=== PATIENT | female | born 1945 | race Caucasian/White ===

== ENCOUNTER 2017-06-23 11:39 | Day surgery (SDC) | payer MEDICARE, OTHER ==
[~2017-06-23 11:39] MED LIST: Acetaminophen TAB* 325 MG PO PRN; Buffered Lidocaine 0.9% SYRIN* 5 ML/SYR SYRINGE INTRADERM ONE
[2017-06-23] MEDS ORDERED: Tetracaine 0.5% OPTH.SOL 4 ML* 1 DROP BTL ONE (13:27)
[2017-06-23] MEDS ORDERED: Neomycin/Polymy/Dex OPHTH.OIN* 3.5 GM ONE (13:27)
[2017-06-23] MEDS ORDERED: Phenylephrine 2.5% OPTH.SOL* 2 ML BTL ONE (13:27)
[2017-06-23] MEDS ORDERED: Lidocaine 1% MPF* 2 ML VIAL ONE (13:27)
[2017-06-23] MEDS ORDERED: Cyclopentolate 1% OPTH.SOL* 2 ML BTL ONE (13:27)
[2017-06-23] MEDS ORDERED: Ketorolac 0.5% OPHTH (NF) 0.5 % 5 ML BTL ONE (13:27)
[2017-06-23] MEDS ORDERED: Buffered Lidocaine 0.9% SYRIN* 5 ML/SYR SYRINGE ONE (13:27)
[2017-06-23] MEDS ORDERED: Tropicamide 1% OPTH.SOL* BTL ONE (13:27)
[2017-06-23] MEDS ORDERED: Midazolam* 1 MG/ML 2 ML VIAL (2 MG) ONE (13:55)
[2017-06-23 15:15] VITALS: BP 129/55
--- NOTE | 2017-06-24 04:57 | OP ---
DATE OF OPERATION: 06/23/17 - [place] [facility] DATE OF : 43 SURGEON: Tahir Cruz MD MANAGER ORACLE DATABASE: None. ANESTHESIOLOGIST: Dr. Knapp ANESTHESIA: Topical with intravenous sedation. PRE-OP DIAGNOSIS: Cataract, right eye with astigmatism. POST-OP DIAGNOSIS: Cataract, right eye with astigmatism. OPERATIVE PROCEDURE: Phacoemulsification and cataract extraction with posterior chamber toric intraocular lens implant, right eye. COMPLICATIONS: None. BLOOD LOSS: None. DESCRIPTION OF PROCEDURE: The patient was seen preoperatively in the holding area where a tarik was made at the 6 o'clock position of the conjunctiva near the limbus in the right eye. This was done when the patient was seated upright. The patient was subsequently brought to the operating room where she was given a small intravenous sedation and a drop of tetracaine to the right eye. The patient was prepped and draped in the usual sterile fashion for ophthalmic surgery. Attention was directed to the right eye where a speculum was placed. A paracentesis was created at the 11 o'clock position. 0.1 cc of 1 percent preservative-free lidocaine was injected into the anterior chamber followed by DisCoVisc. The eye was digitally stabilized while a 2.75 mm keratome was used to create a triplanar clear corneal incision at the 9 o'clock position. A continuous curvilinear capsulorrhexis was created with a cystotome and Utrata forceps. BSS on a cannula was used to hydrodissect the lens from the capsule. Phacoemulsification was performed in a [id number] technique to create four fragments which were removed. Residual cortical material was removed with irrigation and aspiration. Healon was used to inflate the capsular bag. A Arellano marker was used to tarik the 28-degree axis on the limbus. An SN6AT3 18.5 diopter lens was folded and inserted into the capsular bag. It was dialed to the appropriate alignment using a Sinskey hook. The Sinskey hook remained in the eye through paracentesis to stabilize the lens while irrigation and aspiration was performed to remove viscoelastic from the eye. The Sinskey hook was then removed. BSS on a cannula was used to hydrate the corneal stroma and seal the wound. At the end of the case, the pupil was round. The lens was centered and stable. It was axially aligned. The eye pressure appeared normal and the wound was water tight. The speculum was removed. Topical Maxitrol ointment was placed on the surface of the eye. The eye was closed, patched and shielded and the patient was sent to the recovery room in stable condition with postoperative instructions and followup appointment given. [id number]/[facility] #: [id number] MTDD
== END 2017-06-23 13:11 | disposition home or self-care (01) ==
LOC: OREAST 11:39
PROVIDERS: ATTEND Ophthalmology
DX: H25.013 Cortical age-related cataract, bilateral (principal); H52.201 Unspecified astigmatism, right eye; E78.00 Pure hypercholesterolemia, unspecified; I10 Essential (primary) hypertension; F41.9 Anxiety disorder, unspecified; F32.9 Major depressive disorder, single episode, unspecified; G47.33 Obstructive sleep apnea (adult) (pediatric); R73.9 Hyperglycemia, unspecified; E66.9 Obesity, unspecified; M19.90 Unspecified osteoarthritis, unspecified site; E03.9 Hypothyroidism, unspecified; Z79.82 Long term (current) use of aspirin; Z88.2 Allergy status to sulfonamides; Z88.8 Allergy status to other drugs, medicaments and biological substances; Z68.35 Body mass index [BMI] 35.0-35.9, adult
CPT/HCPCS: A9270-GY; J2250; V2787

== ENCOUNTER 2017-06-30 08:14 | Day surgery (SDC) | payer MEDICARE, OTHER ==
[2017-06-30] MEDS ORDERED: fentaNYL* 50 MCG/ML 2 ML VIAL (100 MCG VIAL) ONE (09:29)
[2017-06-30] MEDS ORDERED: Midazolam* 1 MG/ML 5 ML VIAL (5 MG) ONE (09:31)
[2017-06-30 10:24] VITALS: BP 125/42
[2017-06-30] MEDS ORDERED: Neomycin/Polymy/Dex OPHTH.OIN* 3.5 GM ONE (11:15)
[2017-06-30] MEDS ORDERED: Buffered Lidocaine 0.9% SYRIN* 5 ML/SYR SYRINGE ONE (11:15)
[2017-06-30] MEDS ORDERED: Tetracaine 0.5% OPTH.SOL 4 ML* 1 DROP BTL ONE (11:15)
[2017-06-30] MEDS ORDERED: Phenylephrine 2.5% OPTH.SOL* 2 ML BTL ONE (11:15)
[2017-06-30] MEDS ORDERED: Lidocaine 1% MPF* 2 ML VIAL ONE (11:15)
[2017-06-30] MEDS ORDERED: Flurbiprofen 0.03% OPTH.SOL* 2.5 ML BTL ONE (11:15)
[2017-06-30] MEDS ORDERED: Cyclopentolate 1% OPTH.SOL* 2 ML BTL ONE (11:15)
[2017-06-30] MEDS ORDERED: Tropicamide 1% OPTH.SOL* BTL ONE (11:15)
--- NOTE | 2017-06-30 21:20 | OP ---
OPERATIVE REPORT: DATE OF OPERATION: 06/30/17 DATE OF : 43 SURGEON: Tahir Cruz MD FIRE WATCHER: None. ANESTHESIA: Topical with intravenous sedation. PRE-OP DIAGNOSIS: Cataract with astigmatism, left eye. POST-OP DIAGNOSIS: Cataract with astigmatism, left eye. OPERATIVE PROCEDURE: Phacoemulsification and cataract extraction with posterior chamber intraocular Toric lens implant, left eye. COMPLICATIONS: None. BLOOD LOSS: None. OPERATIVE FINDINGS: The patient was seen preoperatively in the holding area where she was placed in an upright position. A tarik was made at the 6 o'clock position near the limbus on the conjunctiva of the left eye. The patient was subsequently brought into the operating room where she was given a small amount of intravenous sedation. A drop of tetracaine was placed on her left eye. The patien t was prepped and draped in the usual sterile fashion for ophthalmic surgery. Attention was directe d to the left eye where a speculum was placed. A paracentesis was created at the 5 o'clock position and 0.1 cc of 1% preservative-free lidocaine was injected into the anterior chamber followed by Dis CoVisc. The eye was digitally stabilized while a 2.75 mm keratome was used to create a triplanar cl ear corneal incision at the 3 o'clock position. A continuous curvilinear capsulorrhexis was created with a cystotome and Utrata forceps. BSS on a cannula was used to hydrodissect the lens from the c apsule. Phacoemulsification was performed in a [id number] technique to create four fragment s, which were removed. Residual cortical material was removed with irrigation and aspiration. Healo n was used to inflate the capsular bag. A Arellano marker was used to tarik the 147-degree axis at the limbus. An SN6AT3 18 diopter lens was folded and inserted into the capsular bag. It was dialed to the appropriate axial alignment using a Sinskey hook. The Sinskey hook remained in the eye through paracentesis to stabilize the lens while irrigation and aspiration was performed to remove viscoela stic from the eye. The Sinskey hook was removed. BSS on a cannula was used to hydrate the corneal stroma and seal the wound. At the end of the case, the pupil was round. The lens was centered, stab le, and axially aligned. The eye pressure appeared normal. The wound was watertight. The speculum was removed. Topical Maxitrol ointment was placed on the surface of the eye. The eye was closed, patched and shielded and the patient was sent to the recovery room in stable condition with postoper ative instructions and followup appointment given. [id number]/[facility] #: [id number]
== END 2017-06-30 10:37 | disposition home or self-care (01) ==
LOC: OREAST 08:14
PROVIDERS: ATTEND Ophthalmology
DX: H25.12 Age-related nuclear cataract, left eye (principal); H52.202 Unspecified astigmatism, left eye; I10 Essential (primary) hypertension; E03.9 Hypothyroidism, unspecified; G47.33 Obstructive sleep apnea (adult) (pediatric); R73.9 Hyperglycemia, unspecified; R00.2 Palpitations; Z96.653 Presence of artificial knee joint, bilateral
CPT/HCPCS: A9270-GY; J2250; J3010; V2787

== ENCOUNTER 2017-09-08 12:28 | Emergency (ER) | payer MEDICARE, OTHER ==
[2017-09-08 12:43] VITALS: BP 149/88
--- NOTE | 2017-09-08 13:33 | UC ---
Dizzy HPI HPI Summary: ONSET OF DIZZINESS YESTERDAY MORNING WHILE DOING YOGA. HAS H/O BPPV. STATES THIS FEELS SIMILAR BUT SHE WAS CONCERNED. HAS BEEN FEELING MORE FATIGUED THAN USUAL OVER THE PAST FEW MONTHS. HAS OCCASIONAL PALPITATIONS. DENIES ANY SOB, CP , SWEATS, VISUAL DISTURBANCES. HAS SOME MILD NAUSEA ASSOCIATED WITH DIZZY EPISODES. - History Of Current Complaint Chief Complaint: UCDizziness Stated Complaint: DIZZINESS Time Seen by Provider: 09/08/17 13:11 Hx Obtained From: Patient Onset/Duration: Sudden Onset, Lasting Hours Severity Initially: Moderate Severity Currently: Moderate Pain Intensity: 0 Pain Scale Used: 0-10 Numeric Character: Lightheaded, Dizzy Aggravating Factor(s): Position Change, Change In Head Position Alleviating Factor(s): Rest Associated Signs And Symptoms: Positive: Nausea, Palpitations. Negative: Vomiting, Diaphoresis, Tinnitus, Chest Pain, SOB, Unsteady Gait, Visual Changes , Change In Medication, Change In Diet - Allergies/Home Medications Allergies/Adverse Reactions: Allergies Allergy/AdvReac Type Severity Reaction Status Date / Time Sulfa Antibiotics Allergy Severe Anaphylatic Verified 09/08/17 12:44 Shock Meclofenamate Allergy Unknown Rash Verified 09/08/17 12:44 Home Medications: Home Medications Amoxicillin PO (*) [Amoxicillin 875 MG (*)] 875 mg PO BID 09/08/17 [History Confirmed 09/08/17] PMH/Surg Hx/FS Hx/Imm Hx - Additional Past Medical History Additional PMH: SUKHJINDER ON CPAP Endocrine History: Hypothyroidism, Dyslipidemia Cardiovascular History: Hypertension Psychological History: Anxiety - Surgical History Surgical History: Yes Surgery Procedure, Year, and Place: 2 Total knee replacement. Hernia repair. Tonsillectomy. Cholecystectomy - Family History Known Family History: Positive: Cardiac Disease, Hypertension - Social History Alcohol Use: None Alcohol Amount: 1-2 DRINKS EVERY FEW MONTHS Substance Use Type: None Smoking Status (MU): Former Smoker Type: Cigarettes Amount Used/How Often: 1PPD 15 YRS STOPPED 1980 Have You Smoked in the Last Year: No When Did the Patient Quit Smoking/Using Tobacco: 1980 Review of Systems Constitutional: Fatigue Respiratory: Negative Cardiovascular: Palpitations Gastrointestinal: Negative Neurological: Other - DIZZY All Other Systems Reviewed And Are Negative: Yes Physical Exam Triage Information Reviewed: Yes Appearance: Well-Appearing, No Pain Distress, Well-Nourished Vital Signs: Initial Vital Signs Temp 98.2 F 09/08/17 12:35 Pulse 64 09/08/17 12:35 BP 149/88 09/08/17 12:35 Pulse Ox 96 09/08/17 12:35 Vital Signs Reviewed: Yes Eyes: Positive: Conjunctiva Clear ENT: Positive: Hearing grossly normal, Pharynx normal, TMs normal Neck: Positive: Supple Respiratory Exam: Normal Cardiovascular Exam: Normal Abdomen Description: Positive: Soft Musculoskeletal: Positive: Edema @ - 1+ NON PITTING EDEMA BILATERAL ANKLES Neurological: Positive: Alert Psychological: Positive: Age Appropriate Behavior Skin: Negative: rashes Diagnostics - EKG Cardiac Rate: Bradycardia Cardiac Rhythm: Sinus: Normal - 57 BPM, 1ST DEGREE AV BLOCK, T-WAVE INVERSION/ FLATTENING PRECORDIAL LEADS Ectopy: PACs ST Segment: Non-Specific Dizzy Course/Dx - Course Course Of Treatment: NO PREVIOUS EKG TO COMPARE. CALLED DR. MAGALLANES'S OFFICE AND THEY REPORT NO PREVIOUS EKG. WILL SEND TO ER FOR FURTHER EVALUATION. - Differential Dx/Diagnosis Provider Diagnoses: DIZZINESS/ABNORMAL EKG Discharge - Discharge Plan Condition: Stable Disposition: OTHER Discharge Disposition Comment: TO [facility] BY PRIVATE CAR Patient Education Materials: Heart Block (ED), Dizziness (ED) Referrals: Harvey Magallanes MD [Primary Care Provider] - If Needed Additional Instructions: GO DIRECTLY TO THE ER FROM HERE FOR FURTHER EVALUATION.
== END 2017-09-08 13:33 ==
LOC: UCEAST 12:28
DX: R42 Dizziness and giddiness (principal); R94.31 Abnormal electrocardiogram [ECG] [EKG]; E03.9 Hypothyroidism, unspecified; E78.5 Hyperlipidemia, unspecified; I10 Essential (primary) hypertension; F41.9 Anxiety disorder, unspecified; Z87.891 Personal history of nicotine dependence; Z88.0 Allergy status to penicillin
CPT/HCPCS: 93005; 99212; G0463

== ENCOUNTER 2017-09-08 13:57 | Emergency (ER) | payer MEDICARE, OTHER ==
[2017-09-08 15:11] LABS: Hematocrit 44 % (35-47); Hemoglobin 14.4 g/dl (12.0-16.0); Mean Corpuscular HGB Conc 33 g/dl (31-36); Mean Corpuscular Hemoglobin 29 pg (27-31); Mean Corpuscular Volume 89 fL (80-97); Mean Platelet Volume 8 um3 (7.4-10.4); Red Blood Count 4.92 10^6/ul (4.0-5.4); Red Cell Distribution Width 13 % (10.5-15); White Blood Count 5.7 10^3/ul (3.5-10.8)
--- NOTE | 2017-09-08 15:23 | ED ---
Dizziness - HPI Summary HPI Summary: Pt here w/ dizziness yesterday and today. Noticed while trying to get up from a yoga pose yesterday. Today noticed while bending over to feed cats. Does not have dizziness if she doesn't move into certain positions and suspected she had BPPV which she's had in the past. Went to today and was found to have 3rd degree heart block on ECG. Pt admits she's had decreased energy and endurance with exercise over the past 2 years but more recently increasing fatigue over the past 2+ months. She exercises 2-3 x week by walking on treadmill (1 mile in 25-30 minutes) as well as weight training with a personal injury litigation paralegal. Her medical hx includes: *hypothyroidism - takes levothyroxine *anxiety - takes lexapro daily (does not feel this is effective) and ativan PRN *HTN - lozol *Hyperlipidemia - atorvastatin *81mg ASA enteric coated *BPPV - hasn't had this in years but was tx'd effectively w/ Sailaja maneuver - no meds for tx ever. Report she sees her PCP 4 x time (Dr. Magallanes [phone]). Spoke w/ medical staff there and they report no ECG noted in their records but she had a nuclear study in 2006 - will fax. Pt denies family h/o arrhythmia/block however mom and dad had "heart issues". - History Of Current Complaint Chief Complaint: EDDizziness Stated Complaint: DIZZINESS,VERTIGO-CONVENIENT CARE TRANSFER Time Seen by Provider: 09/08/17 14:21 Hx Obtained From: Patient, Family/Architectural Wood Model Maker - friend - Allergies/Home Medications Allergies/Adverse Reactions: Allergies Allergy/AdvReac Type Severity Reaction Status Date / Time Sulfa Antibiotics Allergy Severe Anaphylatic Verified 09/08/17 14:05 Shock Meclofenamate Allergy Unknown Rash Verified 09/08/17 14:05 PMH/Surg Hx/FS Hx/Imm Hx Previously Healthy: Yes Endocrine/Hematology History: Reports: Hx Thyroid Disease - MILD, ON MEDS Denies: Hx Anticoagulant Therapy Cardiovascular History: Reports: Hx Hypercholesterolemia - on med, Hx Hypertension - Mild, on med, Other Cardiovascular Problems/Disorders - nuclear stress test in 2006 - normal EF 65% Respiratory History: Reports: Hx Sleep Apnea Musculoskeletal History: Reports: Hx Arthritis - KNEES Sensory History: Reports: Hx Cataracts - BILATERAL Opthamlomology History: Reports: Hx Cataracts - BILATERAL Psychiatric History: Reports: Hx Anxiety - on meds, Hx Depression - Surgical History Surgery Procedure, Year, and Place: 2 Total knee replacement. Hernia repair. Tonsillectomy. Cholecystectomy Hx Anesthesia Reactions: No Infectious Disease History: No Infectious Disease History: Denies: History Other Infectious Disease, Traveled Outside the [place] in Last 30 Days - Family History Known Family History: Positive: Cardiac Disease, Hypertension - Social History Occupation: Retired Lives: Alone - 2 cats - indoor only Alcohol Use: None Hx Substance Use: No Substance Use Type: Reports: None Hx Tobacco Use: Yes - not currently Smoking Status (MU): Former Smoker Type: Cigarettes Amount Used/How Often: 1PPD 15 YRS STOPPED 1981 Have You Smoked in the Last Year: No Review of Systems Positive: Fatigue - chronic, progressive. Negative: Fever, Chills Eyes: Negative Negative: Photophobia, Blurred Vision, Diplopia ENT: Negative Negative: Epistaxis, Dental Pain, Sore Throat, Ear Ache, Nasal Discharge Positive: Palpitations - has had these most of her adult life - better when she' s hydrated. Negative: Chest Pain Respiratory: Negative Negative: Shortness Of Breath, Cough Gastrointestinal: Negative Negative: Abdominal Pain, Vomiting, Diarrhea, Nausea Positive: no symptoms reported Musculoskeletal: Negative Skin: Negative Neurological: Negative Positive: Anxious All Other Systems Reviewed And Are Negative: Yes Physical Exam Triage Information Reviewed: Yes Vital Signs On Initial Exam: Initial Vitals Temp Pulse Resp BP Pulse Ox 98.2 F 63 16 164/62 95 09/08/17 14:06 09/08/17 14:06 09/08/17 14:06 09/08/17 14:06 09/08/17 14:06 Vital Signs Reviewed: Yes Appearance: Positive: Well-Appearing, No Pain Distress, Obese Skin: Positive: Warm, Dry Head/Face: Positive: Normal Head/Face Inspection Eyes: Positive: Normal, EOMI, LYNSEY, Conjunctiva Clear ENT: Positive: Normal ENT inspection, Hearing grossly normal, Pharynx normal - mucosa moist, TMs normal Neck: Positive: Supple, Nontender Respiratory/Lung Sounds: Positive: Clear to Auscultation, Breath Sounds Present. Negative: Rales, Rhonchi, Wheezes Cardiovascular: Positive: Pulses are Symmetrical in both Upper and Lower Extremities, Bradycardia, Other - no JVD, S1, S2. Negative: Murmur, Rub, Leg Edema Left, Leg Edema Right Abdomen Description: Positive: Nontender, No Organomegaly, Soft Bowel Sounds: Positive: Present Musculoskeletal: Positive: Normal, Strength/ROM Intact Neurological: Positive: Sensory/Motor Intact, Alert, Oriented to Person Place, Time, CN Intact II-III, [place] Test - + Rt and with return to sitting upright from lying flat on Rt, Facial Symmetry, Speech Normal Psychiatric: Positive: Anxious - Rno Coma Scale Best Eye Response: 4 - Spontaneous Best Motor Response: 6 - Obeys Commands Best Verbal Response: 5 - Oriented Coma Scale Total: 15 Diagnostics - Vital Signs Vital Signs Temp Pulse Resp BP Pulse Ox 09/08/17 14:30 60 17 174/69 97 09/08/17 14:22 57 17 97 09/08/17 14:20 178/82 09/08/17 14:06 98.2 F 63 16 164/62 95 - Laboratory Lab Results: Lab Results 09/08/17 Range/Units 15:01 WBC 5.7 (3.5-10.8) 10^3/ul RBC 4.92 (4.0-5.4) 10^6/ul Hgb 14.4 (12.0-16.0) g/dl Hct 44 (35-47) % MCV 89 (80-97) fL MCH 29 (27-31) pg MCHC 33 (31-36) g/dl RDW 13 (10.5-15) % Plt Count 217 (150-450) 10^3/ul MPV 8 (7.4-10.4) um3 Neut % (Auto) 62.8 (38-83) % Lymph % (Auto) 29.0 (25-47) % Mcleod % (Auto) 6.1 (1-9) % Eos % (Auto) 1.3 (0-6) % Baso % (Auto) 0.8 (0-2) % Absolute Neuts (auto) 3.6 (1.5-7.7) 10^3/ul Absolute Lymphs (auto) 1.7 (1.0-4.8) 10^3/ul Absolute Monos (auto) 0.3 (0-0.8) 10^3/ul Absolute Eos (auto) 0.1 (0-0.6) 10^3/ul Absolute Basos (auto) 0 (0-0.2) 10^3/ul Absolute Nucleated RBC 0 10^3/ul Nucleated RBC % 0.1 Result Diagrams: 09/08/17 15:01 09/08/17 15:01 Lab Statement: Any lab studies that have been ordered have been reviewed, and results considered in the medical decision making process. Dizzy Course/Dx - Course Course Of Treatment: Spoke w/ Dr. Sanchez - no urgent card consult necessary. 1st degree AV block. F/u w/ PCP. - Diagnoses Provider Diagnoses: Benign paroxysmal positional vertigo, First degree AV block Discharge - Discharge Plan Condition: Stable Disposition: HOME Patient Education Materials: Heart Block (ED), Benign Paroxysmal Positional Vertigo (ED) Referrals: [facility] [place] PHYSICIAN REFERRAL [Outside] Harvey Magallanes MD [Primary Care Provider] - Pete Sanchez MD [Medical Doctor] - Henry Bustos [Physical Therapist] - Additional Instructions: You appear to have a First Degree Heart Block. This is not an emergent condition however it is important that you follow-up with your PCP to monitoring cardiac function as you have reported decreased exercise tolerance over the past 2 years. Your vital signs and labs appears to be normal today. You have reported having an appointment scheduled already with your PCP for this - please attend appointment for follow-up. You have also requested information for a local venereal disease investigator - Dr. Sanchez is a local [place] venereal disease investigator and reviewed your ECG today. Feel free to contact their practice if PCP refers to venereal disease investigator. You also appear to have BPPV, a benign condition causing vertigo. You may try home Sailaja Maneuver or seek professional assistance with this issue through a physical therapist who specializes in vestibular therapy. Discuss with your PCP or call a local PT tomorrow to schedule. A local referral line for PCP has been provided as well. Call to establish for local care. *If you develop headache, lightheadedness, dizziness (different from your current vertigo), chest pain, shortness of breath, numbness, tingling, weakness , acute fatigue, sweating, vomiting, return to ED
[2017-09-08 15:26] LABS: Calcium 9.4 mg/dL (8.6-10.3); EGFR African American 90.4 (>60); EGFR Non-African American 70.3 (>60); Potassium 3.8 mmol/L (3.5-5.0); Total Protein 6.8 g/dL (6.4-8.9)
[2017-09-08 15:27] LABS: C Reactive Protein 2.85 mg/L (< 5.00); Globulin 2.8 g/dL (2-4); Total Bilirubin 0.6 mg/dL (0.2-1.0)
[2017-09-08 15:28] LABS: Troponin I 0.01 ng/mL (<0.04)
[2017-09-08 16:03] LABS: TSH (Thyroid Stimulating Horm) 1.48 mcIU/mL (0.34-5.60)
[2017-09-08 16:52] VITALS: BP 137/61
== END 2017-09-08 16:48 | disposition home or self-care (01) ==
LOC: ED 13:57
DX: H81.10 Benign paroxysmal vertigo, unspecified ear (principal); I44.0 Atrioventricular block, first degree; F41.9 Anxiety disorder, unspecified; F32.9 Major depressive disorder, single episode, unspecified; E78.00 Pure hypercholesterolemia, unspecified; I10 Essential (primary) hypertension; E03.9 Hypothyroidism, unspecified; E78.5 Hyperlipidemia, unspecified; Z88.2 Allergy status to sulfonamides; Z87.891 Personal history of nicotine dependence
CPT/HCPCS: 36415; 80053; 83605; 83735; 84443; 84484; 85025; 85610; 85730; 86140; 93005; 99283

== ENCOUNTER 2017-10-05 20:38 | Inpatient (IN) | payer MEDICARE, OTHER ==
[2017-10-05] MEDS ORDERED: Acetaminophen TAB* 325 MG ONE (21:03)
[2017-10-05] MEDS ORDERED: Acetaminophen TAB* 325 MG PO ONE ×2 (21:04→21:38)
[2017-10-05] MEDS ORDERED: NS 0.9% 1000 ML* 1,000 ML IV ONE (21:12)
[2017-10-05] MEDS ORDERED: Oseltamivir CAP* 75 MG PO ONE (21:39)
[2017-10-05] MEDS ORDERED: Albuterol/Ipratropium NEB.SOL* Albuterol 2.5 MG/Ipratropium 0.5 MG 3 ML INH ONE (21:40)
[2017-10-05] MEDS ORDERED: Albuterol 2.5 MG/3 ML NEB.SOL* (0.083%) INH ONE (21:40)
[2017-10-05 22:09] LABS: ABS Basophils 0 10^3/ul (0-0.2); ABS Eosinophils 0 10^3/ul (0-0.6); ABS Lymphocytes 0.6 10^3/ul (1.0-4.8); ABS Monocytes 0.2 10^3/ul (0-0.8); ABS Nucleated RBC 0 10^3/ul; Eosinophil % 0 % (0-6); Hematocrit 42 % (35-47); Hemoglobin 14.2 g/dl (12.0-16.0); Lymphocyte % 10.7 % (25-47); Mean Corpuscular HGB Conc 33 g/dl (31-36); Mean Corpuscular Hemoglobin 29 pg (27-31); Mean Corpuscular Volume 88 fL (80-97); Mean Platelet Volume 9 um3 (7.4-10.4); Nucleated Red Blood Cells % 0; Platelet Count 146 10^3/ul (150-450); Red Blood Count 4.84 10^6/ul (4.0-5.4); Red Cell Distribution Width 14 % (10.5-15); White Blood Count 5.8 10^3/ul (3.5-10.8)
[2017-10-05] MEDS ORDERED: Levofloxacin 750 MG IVPREMIX(* 750 MG/150 ML BAG IVPB ONE (22:13)
[2017-10-05 22:23] LABS: EGFR Non-African American 76.9 (>60)
[2017-10-05] MEDS ORDERED: Ondansetron INJ* 2 MG/ML VIAL IV ONE (22:50)
[2017-10-05] MEDS ORDERED: Potassium Chlor TAB* 20 MEQ TAB.ER PO ONE (22:55)
[2017-10-05] MEDS ORDERED: Iohexol 350* (CONTRAST) 500 ML MDV IV ONE (23:26)
[2017-10-05] MEDS ORDERED: LORazepam INJ* 2 MG/ML 1 ML VIAL IV PUSH PRN (23:40)
[2017-10-05] MEDS ORDERED: Dexamethasone IV* 4 MG/ML 1 ML (4 MG) IV SLOW PU ONE (23:40)
[2017-10-05] MEDS ORDERED: diPHENhydraMINE IV* 50 MG/ML 1 ml VIAL (BENADRYL) IV ONE (23:42)
[2017-10-05] MEDS ORDERED: LORazepam INJ* 2 MG/ML 1 ML VIAL ONE (23:51)
--- NOTE | 2017-10-06 02:35 | ED ---
Analisa Ann Gabriel, scribantione for Aurelio Varner MD on 10/05/17 at 2058 . Influenza-Like Illness - HPI Summary HPI Summary: This patient is a 72 year old F [place] [facility] with a chief complaint of flu like symptoms since 09/30/17. The patient rates the pain 4/10 in severity. Patient reports myalgia, fever, chills, congestion, inability to get warm and productive cough. Has not taken NSAID since 1200 today. And patient has just returned from a cruise at 20:00 today. - History of Current Complaint Chief Complaint: EDFluSymptoms Time Seen by Provider: 10/05/17 20:42 Hx Obtained From: Patient Onset/Duration: Lasting Days, Still Present Associated Signs & Symptoms: F/C, Myalgia, Cough, Nasal Congestion - Allergy/Home Medications Allergies/Adverse Reactions: Allergies Allergy/AdvReac Type Severity Reaction Status Date / Time Sulfa Antibiotics Allergy Severe Anaphylatic Verified 09/08/17 14:05 Shock Meclofenamate Allergy Unknown Rash Verified 09/08/17 14:05 PMH/Surg Hx/FS Hx/Imm Hx Endocrine/Hematology History: Reports: Hx Thyroid Disease - MILD, ON MEDS Denies: Hx Anticoagulant Therapy Cardiovascular History: Reports: Hx Hypercholesterolemia - on med, Hx Hypertension - Mild, on med, Other Cardiovascular Problems/Disorders - nuclear stress test in 2006 - normal EF 65% Respiratory History: Reports: Hx Sleep Apnea Musculoskeletal History: Reports: Hx Arthritis - KNEES Sensory History: Reports: Hx Cataracts - BILATERAL Opthamlomology History: Reports: Hx Cataracts - BILATERAL Psychiatric History: Reports: Hx Anxiety - on meds, Hx Depression - Surgical History Surgery Procedure, Year, and Place: 2 Total knee replacement. Hernia repair. Tonsillectomy. Cholecystectomy Hx Anesthesia Reactions: No Infectious Disease History: No Infectious Disease History: Denies: History Other Infectious Disease, Traveled Outside the [place] in Last 30 Days - Family History Known Family History: Positive: Cardiac Disease, Hypertension Family History: NON CONTRIBUTORY - Social History Alcohol Use: None Alcohol Amount: 1-2 DRINKS EVERY FEW MONTHS Hx Substance Use: No Substance Use Type: Reports: None Hx Tobacco Use: Yes - not currently Smoking Status (MU): Former Smoker Type: Cigarettes Amount Used/How Often: 1PPD 15 YRS STOPPED 1981 Have You Smoked in the Last Year: No Review of Systems Positive: Fever, Chills, Other - cant get warm Positive: Other - nasal congestion Positive: Cough Positive: Myalgia All Other Systems Reviewed And Are Negative: Yes Physical Exam - Summary Physical Exam Summary: VITAL SIGNS: Reviewed. GENERAL: Patient is a well-developed and nourished female who is lying comfortable in the stretcher. Patient is not in any acute respiratory distress. HEAD AND FACE: No signs of trauma. No ecchymosis, hematomas or skull depressions. No sinus tenderness. EYES: PERRLA, EOMI x 2, No injected conjunctiva, no nystagmus. EARS: Hearing grossly intact. Ear canals and tympanic membranes are within normal limits. MOUTH: Oropharynx within normal limits. NECK: Supple, trachea is midline, no adenopathy, no JVD, no carotid bruit, no c- spine tenderness, neck with full ROM. CHEST: Symmetric, no tenderness at palpation LUNGS: decreased breath sounds bilaterally CVS: Regular rate and rhythm, S1 and S2 present, no murmurs or gallops appreciated. ABDOMEN: Soft, non-tender. No signs of distention. No rebound no guarding, and no masses palpated. Bowel sounds are normal. EXTREMITIES: FROM in all major joints, no edema, no cyanosis or clubbing. NEURO: Alert and oriented x 3. No acute neurological deficits. Speech is normal and follows commands. SKIN: Dry and warm Triage Information Reviewed: Yes Vital Signs On Initial Exam: Initial Vitals Temp Pulse Resp BP Pulse Ox 102.8 F 88 16 144/59 92 10/05/17 20:40 10/05/17 20:40 10/05/17 20:40 10/05/17 20:40 10/05/17 20:40 Vital Signs Reviewed: Yes Diagnostics - Vital Signs Vital Signs Temp Pulse Resp BP Pulse Ox 10/05/17 20:40 102.8 F 88 16 144/59 92 - Laboratory Lab Results: Lab Results 10/05/17 10/05/17 10/05/17 Range/Units 21:00 21:45 21:45 WBC 5.8 (3.5-10.8) 10^3/ul RBC 4.84 (4.0-5.4) 10^6/ul Hgb 14.2 (12.0-16.0) g/dl Hct 42 (35-47) % MCV 88 (80-97) fL MCH 29 (27-31) pg MCHC 33 (31-36) g/dl RDW 14 (10.5-15) % Plt Count 146 L (150-450) 10^3/ul MPV 9 (7.4-10.4) um3 Neut % (Auto) 85.1 H (38-83) % Lymph % (Auto) 10.7 L (25-47) % [place] % (Auto) 3.7 (1-9) % Eos % (Auto) 0 (0-6) % Baso % (Auto) 0.5 (0-2) % Absolute Neuts (auto) 5.0 (1.5-7.7) 10^3/ul Absolute Lymphs (auto) 0.6 L (1.0-4.8) 10^3/ul Absolute Monos (auto) 0.2 (0-0.8) 10^3/ul Absolute Eos (auto) 0 (0-0.6) 10^3/ul Absolute Basos (auto) 0 (0-0.2) 10^3/ul Absolute Nucleated RBC 0 10^3/ul Nucleated RBC % 0 Sodium 136 (133-145) mmol/L Potassium 2.9 L (3.5-5.0) mmol/L Chloride 102 (101-111) mmol/L Carbon Dioxide 25 (22-32) mmol/L Anion Gap 9 (2-11) mmol/L BUN 16 (6-24) mg/dL Creatinine 0.74 (0.51-0.95) mg/dL Est GFR ( Amer) 98.9 (>60) Est GFR (Non-Af Amer) 76.9 (>60) BUN/Creatinine Ratio 21.6 H (8-20) Glucose 123 H (70-100) mg/dL Lactic Acid (0.5-2.0) mmol/L Calcium 8.2 L (8.6-10.3) mg/dL Total Bilirubin 0.30 (0.2-1.0) mg/dL AST 25 (13-39) U/L ALT 18 (7-52) U/L Alkaline Phosphatase 83 (34-104) U/L C-Reactive Protein 62.37 H (< 5.00) mg/L Total Protein 6.0 L (6.4-8.9) g/dL Albumin 3.3 (3.2-5.2) g/dL Globulin 2.7 (2-4) g/dL Albumin/Globulin Ratio 1.2 (1-3) Influenza A (Rapid) Negative (Negative) Influenza B (Rapid) Positive H (Negative) 10/05/17 Range/Units 21:45 WBC (3.5-10.8) 10^3/ul RBC (4.0-5.4) 10^6/ul Hgb (12.0-16.0) g/dl Hct (35-47) % MCV (80-97) fL MCH (27-31) pg MCHC (31-36) g/dl RDW (10.5-15) % Plt Count (150-450) 10^3/ul MPV (7.4-10.4) um3 Neut % (Auto) (38-83) % Lymph % (Auto) (25-47) % [place] % (Auto) (1-9) % Eos % (Auto) (0-6) % Baso % (Auto) (0-2) % Absolute Neuts (auto) (1.5-7.7) 10^3/ul Absolute Lymphs (auto) (1.0-4.8) 10^3/ul Absolute Monos (auto) (0-0.8) 10^3/ul Absolute Eos (auto) (0-0.6) 10^3/ul Absolute Basos (auto) (0-0.2) 10^3/ul Absolute Nucleated RBC 10^3/ul Nucleated RBC % Sodium (133-145) mmol/L Potassium (3.5-5.0) mmol/L Chloride (101-111) mmol/L Carbon Dioxide (22-32) mmol/L Anion Gap (2-11) mmol/L BUN (6-24) mg/dL Creatinine (0.51-0.95) mg/dL Est GFR ( Amer) (>60) Est GFR (Non-Af Amer) (>60) BUN/Creatinine Ratio (8-20) Glucose (70-100) mg/dL Lactic Acid 1.4 (0.5-2.0) mmol/L Calcium (8.6-10.3) mg/dL Total Bilirubin (0.2-1.0) mg/dL AST (13-39) U/L ALT (7-52) U/L Alkaline Phosphatase (34-104) U/L C-Reactive Protein (< 5.00) mg/L Total Protein (6.4-8.9) g/dL Albumin (3.2-5.2) g/dL Globulin (2-4) g/dL Albumin/Globulin Ratio (1-3) Influenza A (Rapid) (Negative) Influenza B (Rapid) (Negative) Result Diagrams: 10/05/17 21:45 10/05/17 21:45 Lab Statement: Any lab studies that have been ordered have been reviewed, and results considered in the medical decision making process. - Radiology CXR Radiology Interpretation Completed By: ED Physician - bilateral basal infiltrate - CT CTA Chest/thorax CT Interpretation Completed By: Radiologist - heart is enlarged. Pericardium is not thickened. Thoracic and great vessels are normal, superior and inferior vena cava are normal, hilar lymph nodes are mildly prominent, there is some airspace consolidation in the lingual, there are scattered centrilobular bullous changes in the pulmonary apices, the pleural spaces are normal with no PNX or pleural fluid. Lingular space opacity suggests PNNA correlation with history infections disease parameters and sputum delay relation is recommended. ED physician has reviewed this report. Flu Symptom Course/Dx - Course Assessment/Plan: This patient is a 72 year old F to [facility] with a chief complaint of flu like symptoms since 09/30/17. The patient rates the pain 4/10 in severity. Patient reports myalgia, fever, chills, congestion, inability to get warm and productive cough. Has not taken NSAID since 1200 today. And patient has just returned from a cruise at 20:00 today. An EKG reveals. CXR reveals bilateral basal infiltrate. CTA chest/thorax reveal, per radiologist, heart is enlarged. Pericardium is not thickened. Thoracic and great vessels are normal, superior and inferior vena cava are normal, hilar lymph nodes are mildly prominent, there is some airspace consolidation in the lingual, there are scattered centrilobular bullous changes in the pulmonary apices, the pleural spaces are normal with no PNX or pleural fluid. Lingular space opacity suggests PNNA correlation with history infections disease parameters and sputum delay relation is recommended. ED physician has reviewed this report. Test results with no significant abnormalities except for a positive influenza B. In the ED course the patient was given Ativan, duoneb, decadron, Benadryl,. We discussed patient care with Dr Acosta and they accepted the patient for admittance. Patient will be admitted. The patient is agreeable with this plan. - Diagnoses Provider Diagnoses: PNA (pneumonia), Influenza B - Physician Notifications Discussed Care Of Patient With: Rey Gallo Time Discussed With Above Provider: 01:49 Instructed by Provider To: Admit As Inpatient Discharge - Discharge Plan Condition: Fair Disposition: ADMITTED TO [facility] Referrals: Harvey Magallanes MD [Primary Care Provider] - The documentation as recorded by the Analisa cabrera Gabriel accurately reflects the service I personally performed and the decisions made by , Aurelio Varner MD.
[2017-10-06] MEDS ORDERED: Acetaminophen TAB* 325 MG PO PRN (02:45)
[2017-10-06] MEDS ORDERED: Albuterol 2.5 MG/3 ML NEB.SOL* (0.083%) INH PRN (02:45)
[2017-10-06] MEDS ORDERED: Ondansetron INJ* 2 MG/ML VIAL IV PRN (02:46)
[2017-10-06] MEDS ORDERED: traMADol TAB* 50 MG PO PRN (02:46)
[2017-10-06] MEDS ORDERED: CMCS: Melatonin (NF) 3 MG TAB PO PRN (02:46)
[2017-10-06 04:38] LABS: Urine Appearance Clear; Urine Blood Negative (Negative); Urine Color Yellow; Urine Ketones Trace (Negative); Urine Protein Negative (Negative); Urine Specific Gravity 1.059 (1.010-1.030); Urine Urobilinogen Negative (Negative)
--- NOTE | 2017-10-06 04:48 | HP ---
H&P (Free Text) History and Physical: PCP: Chente Magallanes MD in [place] Date/Time: 10/06/2017 0245 CC: malaise HPI: Mrs Corcoran is a 72YO female HX hypothyroidism presents returning yesterday from a cruise out of [place] 09/26-10/03/2017. She reports beginning to feel chills and progressive fatigue the last 3-4 days of the cruise. She arrived back in [place] 10/05/2017 and developed uncontrollable F/C and productive cough prompting a call to EMS. Work up is positive for influenza B despite having an UTD vaccine schedule. While in ED she was noted to desaturate into the high 80s prompting request for admission. PMedHx HTN HLD SUKHJINDER on CPAP hypothyroidism anxiety Ambulatory Orders Nursing to reconcile. Aspirin EC Low Dose* [Ecotrin EC Low Dose 81 MG*] 81 mg PO BEDTIME 01/01/16 Atorvastatin* [Lipitor 40 MG*] 40 mg PO BEDTIME 01/01/16 Indapamide TAB* [Lozol TAB*] 1.25 mg PO QAM 01/01/16 LORazepam TAB(*) [Ativan 0.5 MG TAB (*)] 1 tab PO BEDTIME 01/01/16 Levothyroxine TAB* [Synthroid TAB*] 1 tab PO QAM 01/01/16 Multivitamins/Minerals TAB* [Thera M Plus TAB*] 1 tab PO EVERY OTHER DAY Calcium 1 tab PO QAM 06/19/17 Co Q-10 1 tab PO QAM 06/19/17 Escitalopram Oxalate [Lexapro 20 mg] 40 mg PO BEDTIME 06/19/17 Lactobacillus [Probiotic] 1 cap PO QAM 06/19/17 Allergies Sulfa Antibiotics Allergy (Severe, Verified 09/08/17 14:05) Anaphylatic Shock Meclofenamate Allergy (Unknown, Verified 09/08/17 14:05) Rash PSurgHx OU cataract extraction tonsillectomy R breast lumpectomy (benign) cholecystectomy B TKA SocHx: quit smoking >25 years ago, rare alcohol, no recreational drugs; lives alone; full code status FamHx: positive for DM2 & CAD ROS: as above, otherwise reviewed and all were negative vitals: Vital Signs Temp 39.3 C 10/05/17 20:40 Pulse 74 10/06/17 01:11 Resp 18 10/05/17 23:58 BP 129/48 10/06/17 00:30 Pulse Ox 95 10/06/17 01:11 Intake & Output 10/05/17 10/05/17 10/06/17 11:59 23:59 11:59 Weight 83.915 kg Constitutional: NAD, normally developed, obese elderly white female HEENM: atraumatic; sclera/conjunctiva: anicteric/clear; hearing: clinically intact; oropharynx: clear, mucosa tacky Neck: soft tissue: non-tender; thyroid: normal Pulmonary: clear to auscultation bilaterally, good aeration, no accessory muscle use CV: RR/RR, normal S1S2, no carotid bruit, no jugular venous distention, 2+ B DP/ PT, no edema Abdominal: soft, non-distended, non-tender, no rebound/guarding/rigidity, normoactive bowel sounds, no hepatosplenomegaly or masses, no costovertebral angle tenderness Musculoskeletal: general: grossly intact, no tenderness w/ palpation Integumental: normal appearance and texture of exposed skin Psychiatric orientation: AA&O to PPS affect: calm mood: cooperative eye contact: good content: reliable responses: timely insight: good Testing: Lab Results 10/05/17 10/05/17 10/05/17 Range/Units 21:00 21:45 21:45 WBC 5.8 (3.5-10.8) 10^3/ul RBC 4.84 (4.0-5.4) 10^6/ul Hgb 14.2 (12.0-16.0) g/dl Hct 42 (35-47) % MCV 88 (80-97) fL MCH 29 (27-31) pg MCHC 33 (31-36) g/dl RDW 14 (10.5-15) % Plt Count 146 L (150-450) 10^3/ul MPV 9 (7.4-10.4) um3 Neut % (Auto) 85.1 H (38-83) % Lymph % (Auto) 10.7 L (25-47) % [place] % (Auto) 3.7 (1-9) % Eos % (Auto) 0 (0-6) % Baso % (Auto) 0.5 (0-2) % Absolute Neuts (auto) 5.0 (1.5-7.7) 10^3/ul Absolute Lymphs (auto) 0.6 L (1.0-4.8) 10^3/ul Absolute Monos (auto) 0.2 (0-0.8) 10^3/ul Absolute Eos (auto) 0 (0-0.6) 10^3/ul Absolute Basos (auto) 0 (0-0.2) 10^3/ul Absolute Nucleated RBC 0 10^3/ul Nucleated RBC % 0 Sodium 136 (133-145) mmol/L Potassium 2.9 L (3.5-5.0) mmol/L Chloride 102 (101-111) mmol/L Carbon Dioxide 25 (22-32) mmol/L Anion Gap 9 (2-11) mmol/L BUN 16 (6-24) mg/dL Creatinine 0.74 (0.51-0.95) mg/dL Est GFR ( Amer) 98.9 (>60) Est GFR (Non-Af Amer) 76.9 (>60) BUN/Creatinine Ratio 21.6 H (8-20) Glucose 123 H (70-100) mg/dL Lactic Acid (0.5-2.0) mmol/L Calcium 8.2 L (8.6-10.3) mg/dL Total Bilirubin 0.30 (0.2-1.0) mg/dL AST 25 (13-39) U/L ALT 18 (7-52) U/L Alkaline Phosphatase 83 (34-104) U/L C-Reactive Protein 62.37 H (< 5.00) mg/L Total Protein 6.0 L (6.4-8.9) g/dL Albumin 3.3 (3.2-5.2) g/dL Globulin 2.7 (2-4) g/dL Albumin/Globulin Ratio 1.2 (1-3) Urine Color Urine Appearance Urine pH (5-9) Ur Specific [place] (1.010-1.030) Urine Protein (Negative) Urine Ketones (Negative) Urine Blood (Negative) Urine Nitrate (Negative) Urine Bilirubin (Negative) Urine Urobilinogen (Negative) Ur Leukocyte Esterase (Negative) Urine WBC (Auto) (Absent) Urine RBC (Auto) (Absent) Ur Squamous Epith Cells (Absent) Urine Bacteria (Absent) Urine Glucose (Negative) Influenza A (Rapid) Negative (Negative) Influenza B (Rapid) Positive H (Negative) 10/05/17 10/06/17 Range/Units 21:45 04:13 WBC (3.5-10.8) 10^3/ul RBC (4.0-5.4) 10^6/ul Hgb (12.0-16.0) g/dl Hct (35-47) % MCV (80-97) fL MCH (27-31) pg MCHC (31-36) g/dl RDW (10.5-15) % Plt Count (150-450) 10^3/ul MPV (7.4-10.4) um3 Neut % (Auto) (38-83) % Lymph % (Auto) (25-47) % [place] % (Auto) (1-9) % Eos % (Auto) (0-6) % Baso % (Auto) (0-2) % Absolute Neuts (auto) (1.5-7.7) 10^3/ul Absolute Lymphs (auto) (1.0-4.8) 10^3/ul Absolute Monos (auto) (0-0.8) 10^3/ul Absolute Eos (auto) (0-0.6) 10^3/ul Absolute Basos (auto) (0-0.2) 10^3/ul Absolute Nucleated RBC 10^3/ul Nucleated RBC % Sodium (133-145) mmol/L Potassium (3.5-5.0) mmol/L Chloride (101-111) mmol/L Carbon Dioxide (22-32) mmol/L Anion Gap (2-11) mmol/L BUN (6-24) mg/dL Creatinine (0.51-0.95) mg/dL Est GFR ( Amer) (>60) Est GFR (Non-Af Amer) (>60) BUN/Creatinine Ratio (8-20) Glucose (70-100) mg/dL Lactic Acid 1.4 (0.5-2.0) mmol/L Calcium (8.6-10.3) mg/dL Total Bilirubin (0.2-1.0) mg/dL AST (13-39) U/L ALT (7-52) U/L Alkaline Phosphatase (34-104) U/L C-Reactive Protein (< 5.00) mg/L Total Protein (6.4-8.9) g/dL Albumin (3.2-5.2) g/dL Globulin (2-4) g/dL Albumin/Globulin Ratio (1-3) Urine Color Yellow Urine Appearance Clear Urine pH 5.0 (5-9) Ur Specific [place] 1.059 H (1.010-1.030) Urine Protein Negative (Negative) Urine Ketones Trace H (Negative) Urine Blood Negative (Negative) Urine Nitrate Negative (Negative) Urine Bilirubin Negative (Negative) Urine Urobilinogen Negative (Negative) Ur Leukocyte Esterase 1+ H (Negative) Urine WBC (Auto) Trace(0-5/hpf) (Absent) Urine RBC (Auto) Trace(0-2/hpf) (Absent) Ur Squamous Epith Cells Present H (Absent) Urine Bacteria Absent (Absent) Urine Glucose Negative (Negative) Influenza A (Rapid) (Negative) Influenza B (Rapid) (Negative) CTA chest, personally reviewed: IMPRESSION: Lingular air space opacity suggests pneumonia. Correlation with history, infectious disease parameters, and sputum delay relation is recommended. Impression: 72F presenting with malaise & cough found to be influenza B positive , CTA read as ? lingular pneumonia but in setting of positive flu this is less likely DIAGNOSIS & PLAN Primary influenza B : oseltamivir, renal dosing : IVFs : supportive care hypoxia : supplemental oxygen hypoKalemia : replace & recheck Secondary HTN : review meds once reconciled HLD : review meds once reconciled SUKHJINDER : continue CPAP hypothyroidism : review meds once reconciled anxiety : review meds once reconciled Admission Rational: observation for influenza w/ hypoxia DVTp: heparin SQ & SCDs Code Status: full HCP: son, Reid Benitez [phone]
[2017-10-06 05:08] LABS: INR 1.19 (0.77-1.02)
[2017-10-06 05:09] LABS: EGFR Non-African American 75.7 (>60)
[2017-10-06] MEDS: Omeprazole CAP* 20 MG PO SCH (05:46)
[2017-10-06] MEDS: NS 0.9% 1000 ML* 1,000 ML IV SCH ×2 (05:47→17:26)
--- NOTE | 2017-10-06 07:17 | RAD ---
INDICATION: Cough. COMPARISON: Correlation is made with a CT of the chest from October 06, 2017. TECHNIQUE: A portable view of the chest was obtained. FINDINGS: The heart appears mildly enlarged. There is increased density in the right cardiophrenic angle which corresponds with a pericardial fat pad on the CT study. The lungs are underinflated and grossly clear. No pleural effusion is seen. IMPRESSION: MILD CARDIOMEGALY.
[2017-10-06 07:33] LABS: ABS Basophils 0 10^3/ul (0-0.2); ABS Eosinophils 0 10^3/ul (0-0.6); ABS Lymphocytes 0.6 10^3/ul (1.0-4.8); ABS Monocytes 0.3 10^3/ul (0-0.8); ABS Neutrophils 5.7 10^3/ul (1.5-7.7); ABS Nucleated RBC 0 10^3/ul; Eosinophil % 0 % (0-6); Hematocrit 38 % (35-47); Lymphocyte % 8.6 % (25-47); Mean Corpuscular HGB Conc 34 g/dl (31-36); Mean Corpuscular Hemoglobin 30 pg (27-31); Mean Corpuscular Volume 88 fL (80-97); Mean Platelet Volume 9 um3 (7.4-10.4); Nucleated Red Blood Cells % 0; Platelet Count 134 10^3/ul (150-450); Red Blood Count 4.35 10^6/ul (4.0-5.4); Red Cell Distribution Width 14 % (10.5-15); White Blood Count 6.5 10^3/ul (3.5-10.8)
--- NOTE | 2017-10-06 07:51 | RAD ---
INDICATION: Pulmonary embolism, pneumonia. COMPARISON: Correlation is made with prior chest x-ray study from October 05, 2017. TECHNIQUE: A CT angiogram of the chest was performed with intravenous following intravenous injection of 73 ml of Omnipaque 350 nonionic contrast. Contiguous axial sections were obtained from the lung apices through the lung bases. Images were reconstructed in the coronal and sagittal planes. FINDINGS: There is relatively homogeneous opacification of the pulmonary arteries. No intraluminal filling defect or pulmonary embolism is seen. The heart is mildly enlarged. No pericardial effusion is seen. The thoracic aorta is normal in caliber and demonstrates homogeneous contrast opacification. There is mild to moderate calcific plaque present. No significant enlarged mediastinal lymph nodes are seen. There are mildly prominent hilar lymph nodes measuring up to 1.5 cm in transverse dimension. There are small dependent bilateral lower lobe infiltrates. No pleural effusion is seen. No significant focal osseous abnormality is seen. IMPRESSION: 1. NO EVIDENCE FOR PULMONARY EMBOLISM. 2. SMALL BILATERAL LOWER LOBE INFILTRATES.
[2017-10-06] MEDS: Docusate CAP* 100 MG PO SCH ×2 (07:55→20:11)
[2017-10-06] MEDS: Oseltamivir CAP* 30 MG CAP PO SCH ×2 (07:55→20:11)
[2017-10-06] MEDS: guaiFENesin ER TAB 600 MG PO SCH ×2 (07:55→20:11)
[2017-10-06 08:17] LABS: EGFR Non-African American 80.7 (>60)
[2017-10-06] MEDS ORDERED: Phenol 1.4% Spray* 177 ML BTL MT PRN (09:32)
[2017-10-06] MEDS ORDERED: Benzonatate CAP* 100 MG PO PRN (14:02)
[2017-10-06] MEDS: Atorvastatin* 40 MG TAB PO SCH (20:11)
[2017-10-06] MEDS: Aspirin EC Low Dose* 81 MG TAB.EC PO SCH (20:11)
[2017-10-06] MEDS: LORazepam TAB(*) 0.5 MG PO SCH (20:11)
[2017-10-06] MEDS: CMCS:Escitalopram (NF) 10 MG TAB PO SCH (20:12)
--- NOTE | 2017-10-06 21:31 | PN ---
Subjective Date of Service: 10/06/17 Interval History: Patient complains of significant general malaise, fevers, Chills, muscle aches and SOB. Patient up to 4L NC. Patient denies any CP, N/V, Abdominal pain, Diarrhea, FELICIANO, or other pain. Patient will have her friend bring in her CPAP from home. Family History: Unchanged from Admission Social History: Unchanged from Admission Past Medical History: Unchanged from Admission Objective Active Medications: Acetaminophen (Tylenol Tab*) 650 mg PO Q6H PRN PRN Reason: FEVER/PAIN Albuterol (Ventolin 2.5 Mg/3 Ml Neb.Josiane*) 2.5 mg INH Q2H PRN PRN Reason: SOB/WHEEZING Aspirin (Aspirin Ec Low Dose*) 81 mg PO BEDTIME [facility] Last Admin: 10/06/17 20:11 Dose: 81 mg Atorvastatin Calcium (Lipitor*) 40 mg PO BEDTIME [facility] Last Admin: 10/06/17 20:11 Dose: 40 mg Benzonatate (Tessalon Cap*) 100 mg PO BID PRN PRN Reason: COUGH Docusate Sodium (Colace Cap*) 200 mg PO BID [facility] Last Admin: 10/06/17 20:11 Dose: 200 mg Escitalopram Oxalate (Lexapro (Nf)) 40 mg PO BEDTIME [facility] Last Admin: 10/06/17 20:12 Dose: 40 mg Guaifenesin (Mucinex*) 1,200 mg PO BID [facility] Last Admin: 10/06/17 20:11 Dose: 1,200 mg Heparin Sodium (Porcine) (Heparin Vial(*)) 5,000 units SUBCUT Q8HR [facility] Sodium Chloride (Ns 0.9% 1000 Ml*) 1,000 mls @ 75 mls/hr IV PER RATE [facility] Last Admin: 10/06/17 17:26 Dose: 75 mls/hr Lactobacillus Rhamnosus (Culturelle*) 1 cap PO QAM [facility] Levothyroxine Sodium (Synthroid Tab*) 50 mcg PO 0600 MARGARITA Lorazepam (Ativan Inj*) 0.5 mg IV PUSH Q4H PRN PRN Reason: ANXIETY Last Admin: 10/05/17 23:58 Dose: 0.5 mg Lorazepam (Ativan Tab(*)) 0.5 mg PO BEDTIME [facility] Last Admin: 10/06/17 20:11 Dose: 0.5 mg Melatonin (Melatonin (Nf)) 3 mg PO BEDTIME PRN; Protocol PRN Reason: Sleep Omeprazole (Prilosec Cap*) 20 mg PO DAILY@0600 [facility] Last Admin: 10/06/17 05:46 Dose: 20 mg Ondansetron HCl (Zofran Inj*) 4 mg IV Q6H PRN PRN Reason: NAUSEA Oseltamivir Phosphate (Tamiflu Cap*) 30 mg PO 0900,2100 [facility] Stop: 10/10/17 09:01 Last Admin: 10/06/17 20:11 Dose: 30 mg Phenol/Menthol (Chloroseptic Throat [place]*) 1 spray MT TID PRN PRN Reason: SORE THROAT Last Admin: 10/06/17 11:59 Dose: 1 spray Tramadol HCl (Ultram*) 50 mg PO Q6H PRN PRN Reason: PAIN Vital Signs - 8 hr 10/06/17 10/06/17 10/06/17 14:17 15:29 20:11 Temperature 98.5 F Pulse Rate 76 59 Respiratory 19 16 18 Rate Blood Pressure 133/41 (mmHg) O2 Sat by Pulse 95 95 Oximetry Oxygen Devices in Use Now: Nasal Cannula Appearance: Patient is a 72yo female who appears stated age and is sitting in the bed in [facility]. Eyes: No Scleral Icterus, PERRLA Ears/Nose/Mouth/Throat: NL Teeth, Lips, Gums, Mucous Membranes Moist, - - Pharyngeal erythema Neck: NL Appearance and Movements; NL JVP, Trachea Midline Respiratory: Symmetrical Chest Expansion and Respiratory Effort, - - Wheezes and [place] throughout. Cardiovascular: NL Sounds; No Murmurs; No JVD, RRR, No Edema Abdominal: NL Sounds; No Tenderness; No Distention, No Hepatosplenomegaly Lymphatic: No Cervical Adenopathy Extremities: No Edema, No Clubbing, Cyanosis Skin: No Rash or Ulcers, No Nodules or Sclerosis Neurological: Alert and Oriented x 3, NL Sensation, NL Muscle Strength and Tone Result Diagrams: 10/06/17 07:06 10/06/17 07:06 Additional Lab and Data: Lab Results Assess/Plan/Problems-Billing Assessment: Patient is a 72yo female with a PMH significant for SUKHJINDER, COPD, HTN, HLD who presents with positive influenza B and is hypoxic, currently requiring 4L O2. - Patient Problems (1) Influenza Current Visit: Yes Status: Acute Code(s): J11.1 - FLU DUE TO UNIDENTIFIED INFLUENZA VIRUS W OTH RESP MANIFEST SNOMED Code(s): 5084568 Comment: Continue Tamiflu and supportive care. O2 as needed, wean as tolerated. Significant wheezes on exam, PRN nebulizers. Supportive care. (2) HTN (hypertension) Current Visit: Yes Status: Acute Code(s): I10 - ESSENTIAL (PRIMARY) HYPERTENSION SNOMED Code(s): 46971098 Comment: Normotensive, hold lozol. (3) HLD (hyperlipidemia) Current Visit: Yes Status: Acute Code(s): E78.5 - HYPERLIPIDEMIA, UNSPECIFIED SNOMED Code(s): 25814723 Comment: Continue Atorvastatin. (4) SUKHJINDER (obstructive sleep apnea) Current Visit: Yes Status: Acute Code(s): G47.33 - OBSTRUCTIVE SLEEP APNEA ( ADULT) (PEDIATRIC) SNOMED Code(s): 62750571 Comment: Home CPAP when available. (5) DVT prophylaxis Current Visit: Yes Status: Acute Code(s): CVW4846 - SNOMED Code(s): 864156686 Comment: Heparin SubQ (6) Full code status Current Visit: Yes Status: Acute Code(s): Z78.9 - OTHER SPECIFIED HEALTH STATUS SNOMED Code(s): 803889282 Status and Disposition: Patient is admitted observation, will discharge when no longer O2 requiring.
[2017-10-07 04:49] LABS: ABS Basophils 0 10^3/ul (0-0.2); ABS Eosinophils 0 10^3/ul (0-0.6); ABS Lymphocytes 1.8 10^3/ul (1.0-4.8); ABS Monocytes 0.3 10^3/ul (0-0.8); ABS Neutrophils 2.9 10^3/ul (1.5-7.7); ABS Nucleated RBC 0 10^3/ul; Eosinophil % 0.4 % (0-6); Hematocrit 38 % (35-47); Hemoglobin 12.4 g/dl (12.0-16.0); Lymphocyte % 36.4 % (25-47); Mean Corpuscular HGB Conc 33 g/dl (31-36); Mean Corpuscular Hemoglobin 29 pg (27-31); Mean Corpuscular Volume 89 fL (80-97); Mean Platelet Volume 9 um3 (7.4-10.4); Nucleated Red Blood Cells % 0; Platelet Count 124 10^3/ul (150-450); Red Blood Count 4.24 10^6/ul (4.0-5.4); Red Cell Distribution Width 14 % (10.5-15); White Blood Count 5.1 10^3/ul (3.5-10.8)
[2017-10-07 05:03] LABS: EGFR Non-African American 86.3 (>60)
[2017-10-07] MEDS: Levothyroxine TAB* 50 MCG TAB PO SCH (05:28)
[2017-10-07] MEDS: Omeprazole CAP* 20 MG PO SCH (05:28)
[2017-10-07] MEDS: Heparin VIAL(*) 5000 UNITS/ML VIAL (FIVE THOUSAND) SUBCUT SCH ×3 (05:28→20:45)
[2017-10-07] MEDS: NS 0.9% 1000 ML* 1,000 ML IV SCH (07:22)
[2017-10-07] MEDS: Docusate CAP* 100 MG PO SCH ×2 (08:23→19:59)
[2017-10-07] MEDS: guaiFENesin ER TAB 600 MG PO SCH ×2 (08:23→19:55)
[2017-10-07] MEDS: Lactobacillus Acidophilu (GG)* 1 CAP CAP PO SCH (08:23)
[2017-10-07] MEDS: Oseltamivir CAP* 30 MG CAP PO SCH ×2 (08:23→19:55)
--- NOTE | 2017-10-07 16:02 | PN ---
Subjective Date of Service: 10/07/17 Interval History: Patient feels much better. No SOB or other continued S/S of flu such as muscles aches, F/C, or diarrhea. Patient tolerated CPAP well but was hypoxic in AM. Patient able to be weaned to RA at rest, but desated with activity. Patient denies CP, dysuria, N/V, Abdominal Pain, or other pain. Family History: Unchanged from Admission Social History: Unchanged from Admission Past Medical History: Unchanged from Admission Objective Active Medications: Acetaminophen (Tylenol Tab*) 650 mg PO Q6H PRN PRN Reason: FEVER/PAIN Albuterol (Ventolin 2.5 Mg/3 Ml Neb.Josiane*) 2.5 mg INH Q2H PRN PRN Reason: SOB/WHEEZING Aspirin (Aspirin Ec Low Dose*) 81 mg PO BEDTIME [facility] Last Admin: 10/06/17 20:11 Dose: 81 mg Atorvastatin Calcium (Lipitor*) 40 mg PO BEDTIME [facility] Last Admin: 10/06/17 20:11 Dose: 40 mg Benzonatate (Tessalon Cap*) 100 mg PO BID PRN PRN Reason: COUGH Docusate Sodium (Colace Cap*) 200 mg PO BID [facility] Last Admin: 10/07/17 08:23 Dose: 200 mg Escitalopram Oxalate (Lexapro (Nf)) 40 mg PO BEDTIME [facility] Last Admin: 10/06/17 20:12 Dose: 40 mg Guaifenesin (Mucinex*) 1,200 mg PO BID [facility] Last Admin: 10/07/17 08:23 Dose: 1,200 mg Heparin Sodium (Porcine) (Heparin Vial(*)) 5,000 units SUBCUT Q8HR [facility] Last Admin: 10/07/17 14:54 Dose: Not Given Lactobacillus Rhamnosus (Culturelle*) 1 cap PO QAM [facility] Last Admin: 10/07/17 08:23 Dose: 1 cap Levothyroxine Sodium (Synthroid Tab*) 50 mcg PO 0600 [facility] Last Admin: 10/07/17 05:28 Dose: 50 mcg Lorazepam (Ativan Inj*) 0.5 mg IV PUSH Q4H PRN PRN Reason: ANXIETY Last Admin: 10/05/17 23:58 Dose: 0.5 mg Lorazepam (Ativan Tab(*)) 0.5 mg PO BEDTIME [facility] Last Admin: 10/06/17 20:11 Dose: 0.5 mg Melatonin (Melatonin (Nf)) 3 mg PO BEDTIME PRN; Protocol PRN Reason: Sleep Omeprazole (Prilosec Cap*) 20 mg PO DAILY@0600 [facility] Last Admin: 10/07/17 05:28 Dose: 20 mg Ondansetron HCl (Zofran Inj*) 4 mg IV Q6H PRN PRN Reason: NAUSEA Oseltamivir Phosphate (Tamiflu Cap*) 30 mg PO 0900,2100 [facility] Stop: 10/10/17 09:01 Last Admin: 10/07/17 08:23 Dose: 30 mg Phenol/Menthol (Chloroseptic Throat [place]*) 1 spray MT TID PRN PRN Reason: SORE THROAT Last Admin: 10/06/17 11:59 Dose: 1 spray Sodium Chloride (Sodium Chloride 0.65% Nasal Drops*) 1 drop BOTH NARES Q4H PRN PRN Reason: DISCOMFORT Tramadol HCl (Ultram*) 50 mg PO Q6H PRN PRN Reason: PAIN Oxygen Devices in Use Now: None Appearance: Patient is a 72yo female who appears stated age and is sitting in the bed in [facility]. Eyes: No Scleral Icterus, PERRLA Ears/Nose/Mouth/Throat: NL Teeth, Lips, Gums, Clear Oropharnyx, Mucous Membranes Moist Neck: NL Appearance and Movements; NL JVP, Trachea Midline Respiratory: Symmetrical Chest Expansion and Respiratory Effort, - - Expiratory Wheezing throughout. Cardiovascular: NL Sounds; No Murmurs; No JVD, RRR, No Edema Abdominal: NL Sounds; No Tenderness; No Distention, No Hepatosplenomegaly Lymphatic: No Cervical Adenopathy Extremities: No Edema, No Clubbing, Cyanosis Skin: No Rash or Ulcers, No Nodules or Sclerosis Neurological: Alert and Oriented x 3, NL Sensation, NL Muscle Strength and Tone , - - CN II-XII intact. Result Diagrams: 10/07/17 04:27 10/07/17 04:27 Additional Lab and Data: Lab Results Assess/Plan/Problems-Billing Assessment: Patient is a 72yo female with a PMH significant for SUKHJINDER, COPD, HTN, HLD who presents with positive influenza B and is hypoxic, currently requiring 4L O2. - Patient Problems (1) Influenza Current Visit: Yes Status: Acute Code(s): J11.1 - FLU DUE TO UNIDENTIFIED INFLUENZA VIRUS W OTH RESP MANIFEST SNOMED Code(s): 7529546 Comment: Continue Tamiflu and supportive care. O2 as needed, wean as tolerated. Now on 1L at rest. Significant wheezes on exam, PRN nebulizers. Supportive care. Discharge when patient can ambulate without desaturation. (2) HTN (hypertension) Current Visit: Yes Status: Acute Code(s): I10 - ESSENTIAL (PRIMARY) HYPERTENSION SNOMED Code(s): 08916740 Comment: Normotensive, hold lozol. (3) HLD (hyperlipidemia) Current Visit: Yes Status: Acute Code(s): E78.5 - HYPERLIPIDEMIA, UNSPECIFIED SNOMED Code(s): 45506912 Comment: Continue Atorvastatin. (4) SUKHJINDER (obstructive sleep apnea) Current Visit: Yes Status: Acute Code(s): G47.33 - OBSTRUCTIVE SLEEP APNEA ( ADULT) (PEDIATRIC) SNOMED Code(s): 20241690 Comment: Home CPAP and saline nesal spray for dry membranes. (5) DVT prophylaxis Current Visit: Yes Status: Acute Code(s): ZUZ6800 - SNOMED Code(s): 575750356 Comment: Heparin SubQ (6) Full code status Current Visit: Yes Status: Acute Code(s): Z78.9 - OTHER SPECIFIED HEALTH STATUS SNOMED Code(s): 633069515 Status and Disposition: Patient is admitted observation, will discharge when no longer O2 requiring.
[2017-10-07] MEDS: Atorvastatin* 40 MG TAB PO SCH (19:55)
[2017-10-07] MEDS: LORazepam TAB(*) 0.5 MG PO SCH (19:55)
[2017-10-07] MEDS: Aspirin EC Low Dose* 81 MG TAB.EC PO SCH (19:55)
[2017-10-07] MEDS: CMCS:Escitalopram (NF) 10 MG TAB PO SCH (19:56)
[2017-10-07] MEDS: Saline NASAL DROPS 0.65%* 1 DROP BTL BOTH NARES PRN (20:44)
[2017-10-08] MEDS: Saline NASAL DROPS 0.65%* 1 DROP BTL BOTH NARES PRN (04:09)
[2017-10-08] MEDS: Levothyroxine TAB* 50 MCG TAB PO SCH (05:30)
[2017-10-08] MEDS: Heparin VIAL(*) 5000 UNITS/ML VIAL (FIVE THOUSAND) SUBCUT SCH (05:30)
[2017-10-08] MEDS: Omeprazole CAP* 20 MG PO SCH (05:30)
[2017-10-08] MEDS: guaiFENesin ER TAB 600 MG PO SCH (08:51)
[2017-10-08] MEDS: Docusate CAP* 100 MG PO SCH (08:51)
[2017-10-08] MEDS: Lactobacillus Acidophilu (GG)* 1 CAP CAP PO SCH (08:51)
[2017-10-08] MEDS: Oseltamivir CAP* 30 MG CAP PO SCH (08:51)
[2017-10-08 10:49] VITALS: BP 115/45
--- NOTE | 2017-10-09 10:10 | DS ---
CC: Dr. Harvey Magallanes * DATE OF ADMISSION: 10/06/17 DATE OF DISCHARGE: 10/08/17 PRIMARY CARE PROVIDER: Dr. Magallanes in [place] and local primary care provider to be determined. ATTENDING PHYSICIAN WHILE IN THE HOSPITAL: Dr. Giuseppe Jama * (dictated by ITALO Boles). PRIMARY DISCHARGE DIAGNOSIS: Influenza A. SECONDARY DISCHARGE DIAGNOSES: 1. Hypertension. 2. Hyperlipidemia. 3. Obstructive sleep apnea, on CPAP. 4. Hypothyroidism. 5. Anxiety. STUDIES DONE WHILE IN THE HOSPITAL: 1. Chest x-ray from 10/05/17, read as mild cardiomegaly. 2. Chest thorax CTA from 10/05/17 read as no evidence for pulmonary embolism, small bilateral lower lobe infiltrates. MEDICATIONS AT DISCHARGE: 1. Multivitamins. 2. Levothyroxine 50 mcg p.o. q.a.m. 3. Lorazepam 1 tab 1.5 mg p.o. at bedtime. 4. Lozol 1.25 mg p.o. q.a.m. 5. Lipitor 40 mg p.o. at bedtime. 6. Aspirin 81 mg p.o. at bedtime. 7. Lisinopril 40 mg p.o. at bedtime. 8. Probiotic 1 cap p.o. q.a.m. 9. Calcium 1 tab p.o. q.a.m. 10. Coenzyme CoQ10 1 tab p.o. q.a.m. 11. Tylenol 650 mg p.o. q.6 hours as needed. 12. Tessalon 100 mg p.o. b.i.d., as needed. 13. Colace 200 mg p.o. b.i.d. 14. Mucinex 1200 mg p.o. b.i.d. 15. Tamiflu 75 mg p.o. b.i.d. x4. 16. Saline nasal spray. 17. Albuterol/Ventolin inhaler. New medications at discharge: Tylenol, Tessalon, Colace, Mucinex, Tamiflu, saline nasal spray, albuterol. Medications discontinued at discharge: None. HOSPITAL COURSE: This is a brief summary of the patient's presentation. For more details, please see the history and physical from Dr. Rey Gallo from 10/06/17. In brief, the patient is a 72-year-old female with a past medical history significant for the above who was brought to the emergency department for chills, progressive fatigue for 3 to 4 days before her admission. Patient came to the emergency department and was found to have positive influenza B and desaturated into the high 80s. The patient was admitted and was started on Tamiflu, given IV fluids and was on initially 2 L of oxygen. Patient did well. Patient never had leukocytosis. Patient's potassium was low, but resolved with repletion. Patient had a CRP of 62.34 and a benign urine. Patient also had blood cultures with no growth. Patient briefly had to be titrated up to 4 L of oxygen. Patient had a fever of 102.8 on admission and no subsequent fevers. Patient had no hypotension while in the hospital. Patient improved progressively throughout her hospital course. On the evening of 10/07/17 was able to be walked in the hallway without oxygen and patient was discharged in the morning of 10/08/17 without oxygen. PHYSICAL EXAMINATION ON THE DAY OF DISCHARGE: General: The patient is a 72- year- old female who appears stated age and sitting comfortably on bed, in no acute distress. Vital Signs: At discharge, temperature is 98.4, heart rate 65 , respiration rate 18, oxygen saturation 95% on room air, blood pressure 118/ 45. HEENT: Head normocephalic, atraumatic. Sclerae anicteric. No conjunctival injection. Nasal mucosa dry with crusted mucus. Nonerythematous. No postnasal drainage. Oral mucosa moist. Neck: Supple, nontender. No lymphadenopathy. No carotid bruit auscultated. Cardiac: Regular rate and rhythm. No clicks, murmurs, gallops or rubs. Pulses 2+ in bilateral dorsalis pedis, posterior tibialis, and radial areas. Abdomen: Soft, nontender, nondistended. Bowel sounds present and normoactive in all 4 quadrants. No hepatosplenomegaly. No abdominal bruits auscultated. Genitourinary: No suprapubic tenderness, no CVA tenderness. Skin: Clean, dry, intact. No rash. Neuro: Cranial nerves II through XII grossly intact. No focal deficits. Alert and oriented x3. Psychiatric: Pleasant and cooperative. LABORATORY DATA: On the day of discharge, white blood cell count 5.1, hemoglobin 12.4, platelet count 124. Sodium 136, potassium 3.7, chloride 104, carbon dioxide 28, anion gap 4, BUN 12, creatinine 0.67, glucose 100, calcium 8.3. Other pertinent laboratory values this admission, lactic acid 1.4 on admission, positive influenza B. DISCHARGE PLAN: The patient will be discharged to home to continue her course of 10 doses of Tamiflu. Patient was given Mucinex and albuterol for supportive care. Patient should continue with her BiPAP at night. It will be attempted to get the patient a primary care provider closer to her home in [place] and patient should follow up with that provider whenever available as the patient does not feel safe traveling to [place] and needs followup to ensure resolution of her influenza. ACTIVITY: The patient should engage in activity as tolerated. DIET: Have a heart-healthy diet with caffeine okay. TIME SPENT: Approximately 60 minutes were spent on this discharge, 30 of which were spent [id number] with the patient obtaining history and physical and discussing treatment plan. ITALO BOLES [id number]/[facility] #: [id number] CHRISTINE
== END 2017-10-08 13:04 | disposition home or self-care (01) | DRG 195 ==
LOC: ED 20:38 → MEDTELE 10-06 02:44 → OBSVTOIN 10-07 14:34
PROVIDERS: ADMIT Hospitalist; ATTEND Internal Medicine
DX: J10.1 Influenza due to other identified influenza virus with other respiratory manifestations (principal); J44.9 Chronic obstructive pulmonary disease, unspecified; E03.9 Hypothyroidism, unspecified; E78.5 Hyperlipidemia, unspecified; G47.33 Obstructive sleep apnea (adult) (pediatric); F32.9 Major depressive disorder, single episode, unspecified; R09.02 Hypoxemia; E66.9 Obesity, unspecified; Z96.653 Presence of artificial knee joint, bilateral; I10 Essential (primary) hypertension; F41.9 Anxiety disorder, unspecified; E87.6 Hypokalemia; Z88.2 Allergy status to sulfonamides; Z98.49 Cataract extraction status, unspecified eye; Z90.49 Acquired absence of other specified parts of digestive tract; Z87.891 Personal history of nicotine dependence; Z82.49 Family history of ischemic heart disease and other diseases of the circulatory system; Z83.3 Family history of diabetes mellitus; Z79.82 Long term (current) use of aspirin; Z88.8 Allergy status to other drugs, medicaments and biological substances; Z72.89 Other problems related to lifestyle; Z68.35 Body mass index [BMI] 35.0-35.9, adult
CPT/HCPCS: 36415; 71045; 71275; 80048; 80053; 81003; 81015; 82565; 83605; 84520; 85025; 85610; 85730; 86140; 87040; 87086; 87502; 94640; 94760; A9270-GY; G0378; J1100; J1200; J1644; J2060; J2405; Q9967

== ENCOUNTER 2017-10-16 13:33 | Emergency (ER) | payer MEDICARE, OTHER ==
[2017-10-16 14:21] VITALS: BP 109/78
--- NOTE | 2017-10-16 14:36 | UC ---
FLU HPI - HPI Summary HPI Summary: PT WAS ADMTTED TO [facility] [place] 10/06-10/08/17 FOR FLU B AND HYPOXIA. DOES NOT HAVE A LOCAL PCP AND SO IS HERE FOR F/U. STATES SHE FEELS SHE IS GETTING BETTER EVERY DAY. NO FEVERS. NO SOB OR CP. STILL FEELS TIRED BUT SLOWLY IMPROVING. - History of Current Complaint Chief Complaint: UCGeneralIllness Stated Complaint: CONGESTION TIRED Time Seen by Provider: 10/16/17 14:22 Hx Obtained From: Patient Onset/Duration: Gradual Onset, Lasting Weeks, Still Present Severity Currently: Moderate Severity Initially: Mild Pain Intensity: 0 Pain Scale Used: 0-10 Numeric - Allergy/Home Medications Allergies/Adverse Reactions: Allergies Allergy/AdvReac Type Severity Reaction Status Date / Time Sulfa Antibiotics Allergy Severe Anaphylatic Verified 10/16/17 14:21 Shock Meclofenamate Allergy Unknown Rash Verified 10/16/17 14:21 PMH/Surg Hx/FS Hx/Imm Hx Endocrine History: Hypothyroidism, Dyslipidemia Cardiovascular History: Hypertension Respiratory History: COPD Psychological History: Anxiety, Depression Other History Of: Negative For: Anticoagulant Therapy - Surgical History Surgical History: Yes Surgery Procedure, Year, and Place: 2 Total knee replacement. Hernia repair. Tonsillectomy. Cholecystectomy - Family History Known Family History: Positive: Cardiac Disease, Hypertension - Social History Alcohol Use: None Alcohol Amount: 1-2 DRINKS EVERY FEW MONTHS Substance Use Type: None Smoking Status (MU): Former Smoker Type: Cigarettes Amount Used/How Often: 1PPD 15 YRS STOPPED 1980 Have You Smoked in the Last Year: No When Did the Patient Quit Smoking/Using Tobacco: 1980 - Immunization History Most Recent Influenza Vaccination: Fall 2016 Most Recent Pneumonia Vaccination: never Review of Systems Constitutional: Fatigue Respiratory: Negative Cardiovascular: Negative Gastrointestinal: Negative All Other Systems Reviewed And Are Negative: Yes Physical Exam Triage Information Reviewed: Yes Appearance: Well-Appearing, No Pain Distress, Well-Nourished Vital Signs: Initial Vital Signs Temp 97.0 F 10/16/17 14:15 Pulse 101 10/16/17 14:15 Resp 20 10/16/17 14:15 BP 109/78 10/16/17 14:15 Pulse Ox 95 10/16/17 14:15 Vital Signs Reviewed: Yes Eyes: Positive: Conjunctiva Clear ENT: Positive: Hearing grossly normal, Pharynx normal, TMs normal Neck: Positive: Supple, Nontender, No Lymphadenopathy Respiratory Exam: Normal Cardiovascular Exam: Normal Abdomen Description: Positive: Soft Musculoskeletal: Positive: No Edema Neurological: Positive: Alert Psychological: Positive: Age Appropriate Behavior Skin: Negative: rashes Flu Course/Dx - Differential Dx/Diagnosis Provider Diagnoses: INFLUENZA B - RESOLVING Discharge - Discharge Plan Condition: Stable Disposition: HOME Patient Education Materials: Influenza (ED) Referrals: Harvey Magallanes MD [Primary Care Provider] - If Needed Additional Instructions: YOUR SYMPTOMS ARE SLOWLY IMPROVING AND SHOULD CONTINUE TO DO SO. IF YOUR SYMPTOMS WORSEN AGAIN BE SURE TO GO THE ER FOR FURTHER EVALUATION. CALL THE NUMBER BELOW FOR ASSISTANCE IN ESTABLISHING WITH A PCP An additional resource available to assist in finding the appropriate physician for your health care needs is the [facility] ([facility]). You may contact them by calling [phone].
== END 2017-10-16 14:49 | disposition home or self-care (01) ==
LOC: UCEAST 13:33
DX: J10.1 Influenza due to other identified influenza virus with other respiratory manifestations (principal); I10 Essential (primary) hypertension; J44.9 Chronic obstructive pulmonary disease, unspecified; Z87.891 Personal history of nicotine dependence; Z88.6 Allergy status to analgesic agent; Z88.2 Allergy status to sulfonamides
CPT/HCPCS: 99211; G0463

== ENCOUNTER 2017-12-03 06:57 | Observation (INO) | payer MEDICARE, OTHER ==
[2017-12-03 07:49] LABS: ABS Basophils 0.1 10^3/ul (0-0.2); ABS Eosinophils 0.2 10^3/ul (0-0.6); ABS Lymphocytes 2.1 10^3/ul (1.0-4.8); ABS Monocytes 0.4 10^3/ul (0-0.8); ABS Neutrophils 3.7 10^3/ul (1.5-7.7); ABS Nucleated RBC 0 10^3/ul; Eosinophil % 3.5 % (0-6); Hematocrit 41 % (35-47); Hemoglobin 13.8 g/dl (12.0-16.0); Lymphocyte % 32.5 % (25-47); Mean Corpuscular HGB Conc 34 g/dl (31-36); Mean Corpuscular Hemoglobin 30 pg (27-31); Mean Corpuscular Volume 89 fL (80-97); Mean Platelet Volume 9 um3 (7.4-10.4); Nucleated Red Blood Cells % 0; Platelet Count 216 10^3/ul (150-450); Red Blood Count 4.59 10^6/ul (4.0-5.4); Red Cell Distribution Width 15 % (10.5-15); White Blood Count 6.4 10^3/ul (3.5-10.8)
[2017-12-03 07:59] LABS: EGFR Non-African American 78.1 (>60); INR 0.92 (0.77-1.02)
[2017-12-03] MEDS ORDERED: Diazepam TAB(*) 5 MG ONE (08:05)
[2017-12-03] MEDS ORDERED: fentaNYL* 50 MCG/ML 2 ML VIAL (100 MCG VIAL) ONE (08:24)
[2017-12-03] MEDS ORDERED: Lidocaine 1% INJ* 10 MG/ML 30 ML SDV ONE (08:24)
[2017-12-03] MEDS ORDERED: Midazolam* 1 MG/ML 5 ML VIAL (5 MG) ONE ×2 (08:24→09:06)
[2017-12-03] MEDS ORDERED: Iohexol 300 (CONTRAST) 10 ML SDV ONE (08:42)
[2017-12-03] MEDS ORDERED: ceFAZolin 2 GM in NS 0.9% 100 ml IVPB ONE (09:00)
[2017-12-03] MEDS ORDERED: ceFAZolin 2 GM PREMIX (*) 2 GM/50 ML BAG IVPB ONE (09:00)
[2017-12-03] MEDS ORDERED: Acetaminophen TAB* 325 MG PO PRN (10:38)
[2017-12-03] MEDS ORDERED: Docusate CAP* 100 MG PO PRN (10:38)
[2017-12-03] MEDS ORDERED: diPHENhydraMINE PO* 25 MG PO PRN (10:38)
[2017-12-03] MEDS: NS 0.9% 1000 ML* 1,000 ML IV SCH ×3 (11:19→21:47)
[2017-12-03] MEDS: ceFAZolin 500 MG VIAL(*) 500 MG in NS 0.9% 50 ML* 50 ML IVPB SCH (17:16)
--- NOTE | 2017-12-03 17:17 | RAD ---
Indication: Post pacemaker placement. Cardiac disease and COPD. Comparison: October 06, 2017 CT. Technique: Upright AP 1516 hours Report: Cardiomegaly. Associated compressive atelectasis at the LEFT lung base. Small LEFT pleural effusion possible. Minimal prominence of the interstitial markings. Otherwise clear lungs and pleural spaces. Negative for pneumothorax. RIGHT atrial and RIGHT ventricular level pacemaker leads. Unremarkable central pulmonary vasculature. RIGHT and LEFT epicardial fat pads. IMPRESSION: Probable mild pulmonary vascular congestion. Potential small associated LEFT dependent pleural effusion.
[2017-12-03] MEDS ORDERED: PTO: Escitalopram (NF) 20 MG TAB PO SCH (21:00)
[2017-12-03] MEDS ORDERED: Atorvastatin* 40 MG TAB PO SCH (21:00)
[2017-12-03] MEDS ORDERED: Aspirin EC Low Dose* 81 MG TAB.EC PO SCH (21:00)
[2017-12-03] MEDS ORDERED: LORazepam TAB(*) 0.5 MG PO SCH (21:00)
[2017-12-04] MEDS: ceFAZolin 500 MG VIAL(*) 500 MG in NS 0.9% 50 ML* 50 ML IVPB SCH ×2 (01:20→09:18)
[2017-12-04] MEDS ORDERED: Levothyroxine TAB* 50 MCG TAB PO SCH (06:00)
[2017-12-04 07:28] VITALS: BP 146/59
[2017-12-04] MEDS ORDERED: Cyanocobalamin TAB* 500 MCG PO SCH (09:00)
[2017-12-04] MEDS ORDERED: Indapamide TAB* 2.5 MG PO SCH (09:00)
--- NOTE | 2017-12-04 09:19 | RAD ---
Indication: Pacemaker placement 2 views of the chest including dual energy PA views demonstrates no mediastinal shift. Heart is mildly enlarged. Lungs are clear. IMPRESSION: No active cardiopulmonary disease is noted.
--- NOTE | 2017-12-05 09:37 | DS ---
CC: Dr. Luz Solorio; Dr. Harvey Magallanes, [facility], [facility] DISCHARGE SUMMARY: DATE OF ADMISSION: DATE OF DISCHARGE: 12/04/17 HISTORY OF PRESENT ILLNESS/HOSPITAL COURSE: Gaviota Corcoran is a 72-year-old woman, who does not have ph ysicians locally. She was referred here by her primary care physician in [place] for followup o f dizziness as well as decrease in functional ability and exertional dyspnea after she had the flu. I examined her in my office on 11/20/17 and her EKG showed sinus rhythm with a long first-degree AV block and right bundle-branch block, and with carotid sinus massage she had complete heart block with long ventricular pauses. Additional rhythm strips revealed she has second-degree heart block type 1 , with Wenckebach phenomenon. Because of the history of evidence of high-degree AV block, infra-Hisian block with a right bundle-br anch block, and the ability to produce third-degree heart block with carotid sinus massage, she was a dmitted for elective pacemaker. The patient was admitted and underwent dual-chamber pacemaker implantation yesterday, 12/03/17. She received a Medtronic MRI-compatible device without complications. Overnight, the patient had trouble urinating into the bedpan and did not sleep well, but otherwise amato s done well. PHYSICAL EXAMINATION: Today, the patient's blood pressure is 146/59 to 122/51. She is in predominant ly sinus rhythm alternating with atrial paced rhythm and she is ventricularly pacing. Her oxygen sat uration is 95% on room air. General Appearance: Overweight older woman, lying 30 degrees, not as ex uberant as yesterday, but in no medical distress. Psych: Psychologically pleasant and cooperative. Neurologically awake, alert, and oriented to person, place, and time. Cranial nerves II through XII intact. She ambulates well in the room. Skin: Warm and dry. The incision is well healed. No evid ence of infection. A little evidence of discoloration adjacent to the incision site, likely from Bov ie cautery. No hematoma. Lungs: Clear, with good effort. No wheezes, rales, or rhonchi. Coronary: S1, S2, regular. Abdomen: Soft, nontender. The right upper extremity has an IV infiltrate, but is soft and not tense, only minimally tender. The lower extremities are free of edema bilaterally. DIAGNOSTIC STUDIES/LAB DATA: Chest x-ray yesterday and today showed good lead placement and no pneum othorax. The x-ray yesterday showed some atelectasis, today this has cleared. Pacemaker interrogation today confirmed she has a Medtronic Advisa DR. She is now programmed in dual -chamber rate response with a lower rate of 60 beats a minute and upper tracking rate of 130 beats a minute. Overnight, she was atrially paced 30% of the time and ventricularly paced 100% of the time. P wave are sensed at 1.8 millivolts, with an atrial lead impedance of 418 ohms and an atrial pacing threshold of 0.25 volts at 0.4 milliseconds. In the ventricular leads, R waves are sensed at 6.4 mil livolts, with a ventricular lead impedance of 456 ohms, and a ventricular pacing threshold of 0.5 vol ts at 0.4 milliseconds. No dysrhythmias were noted overnight. Labs on admission showed white count 6.4, hemoglobin 13.8, hematocrit 41, platelets 216. INR 0.92, P TT 26.6. Sodium 138, potassium 3.6, chloride 104, bicarb 26, BUN 13, creatinine 0.73, glucose 97. In summary, Gaviota Corcoran is a 72-year-old woman with dizziness, exertional dyspnea, high-degree AV blo ck, a right bundle-branch block, and inducible third-degree heart block, now postop day #1 dual-chamb er pacemaker implantation (MRI-compatible system), clinically doing well. DISCHARGE MEDICATIONS: She will be discharged on the following medications: 1. Keflex 500 mg t.i.d. for 5 days. 2. Benadryl 25 mg q.h.s. p.r.n. insomnia. 3. Colace 200 mg b.i.d. p.r.n. constipation. 4. Lexapro 40 mg q.h.s. 5. Indapamide 1.25 mg q.a.m. 6. Synthroid 50 mcg q.a.m. 7. Ativan 0.5 mg q.h.s. p.r.n. FOLLOWUP: The patient will follow up in our office in 1 week's time for a check on her incision and she has been provided with verbal and written recommendations for wou nd care and information about pacemakers. Thank you for allowing me to assist in this nice woman's care. [id number]/[facility] #: [id number]
--- NOTE | 2017-12-05 09:45 | OP ---
CC: Dr. Luz Solorio; Dr. Magallanes OPERATIVE REPORT: DATE OF OPERATION: 12/03/17 DATE OF : 43 SURGEON: Kat Mackenzie MD. ANESTHESIA: MAC PRE-OP DIAGNOSIS: Intermittent third-degree heart block. POST-OP DIAGNOSIS: Intermittent third-degree heart block. OPERATIVE PROCEDURE: Dual-chamber pacemaker implantation. ESTIMATED BLOOD LOSS: Less than 2 cc. COMPLICATIONS: None. DESCRIPTION OF PROCEDURE: The patient is right handed. The left subclavian fossa was prepped and dr aped in the usual sterile fashion. The indications, risks, and benefits have been discussed with the patient in the office and, again, in the presence of her son on the day of the procedure and she was amenable to proceeding. Following the draping, a time-out was called. The patient received 10 cc of radiopaque dye in the lef t upper extremity, which outlined the left axillary vein and left subclavian vein. Following this, the patient received approximately 20 cc of 1% lidocaine in addition to 6 mg of Verse d and 50 mcg of fentanyl for sedation. A 2.5 cm incision was made in the left subclavian fossa following local anesthesia and using Bovie an d blunt dissection it was extended to the level of the pectoralis muscle. Additional lidocaine was infused inferiorly and medially and using blunt dissection a small pocket wa s fashioned. Using a modified Seldinger technique, the left subclavian vein was cannulated with fluo roscopic guidance and a guidewire inserted and this was repeated with a second guidewire. Using an introducer technique, the ventricular lead was guided into the right ventricular apex. Paci ng and sensing thresholds were suboptimal. So, it was re- guided more towards the septum with good p acing and sensing threshold (active fixation lead). Using the second guidewire and an introducer carlita hnique, the right atrial lead was guided into the right atrial appendage and actively fixed in place with good pacing and sensing thresholds. The leads were then sutured to the pocket using 0-silk sutu re. The pocket was copiously irrigated. The leads were attached to the device. The device was plac ed in the pocket and the pocket was closed with 2 layers of resorbable suture, 2-0, followed by 4-0, followed by sharifa and an external dressing. FINDINGS: The system is an MRI compatible system. The device is a Medtronic A2DR01, serial number [id number]. The atrial lead is a Medtronic model 5076-45, serial number [id number], with P waves sensed at 1.8 mi llivolts, atrial lead impedance 418 ohms, and atrial pacing threshold of 0.75 volts at 0.4 millisecon ds. The ventricular lead is a Medtronic model 5076-52, serial number [id number] with R waves sensed at 9. 6 millivolts, ventricular lead impedance of 437 ohms, and a ventricular pacing threshold of 0.75 volt s at 0.4 milliseconds. The patient was hemodynamically stable throughout the procedure and during recovery. [id number]/[facility] #: [id number]
== END 2017-12-04 12:35 | disposition home or self-care (01) ==
LOC: CHICATH 06:57 → MEDTELE 10:31
PROVIDERS: ADMIT Internal Medicine Cardiovascular Disease; ATTEND Specialist
DX: I44.2 Atrioventricular block, complete (principal); I45.10 Unspecified right bundle-branch block; R53.82 Chronic fatigue, unspecified; R00.2 Palpitations; Z79.899 Other long term (current) drug therapy; Z88.2 Allergy status to sulfonamides; J44.9 Chronic obstructive pulmonary disease, unspecified; E78.00 Pure hypercholesterolemia, unspecified; I10 Essential (primary) hypertension; E03.9 Hypothyroidism, unspecified; R06.09 Other forms of dyspnea; R42 Dizziness and giddiness
CPT/HCPCS: 33208; 36415; 71045; 71046; 80048; 85025; 85610; 85730; 93005; 99156; 99157; A9270-GY; C1785; C1898; G0378; J0690; J2250; J3010; Q9967